=== PATIENT | female | born 1990 | race Caucasian/White ===

== ENCOUNTER 2020-01-29 10:47 | Observation (INO) | END 2020-01-29 12:18 | disposition home or self-care (01) | LOC: 1NENULAB | PROVIDERS: ADMIT Obstetrics & Gynecology; ATTEND Obstetrics & Gynecology ==

== ENCOUNTER 2020-08-15 22:05 | Inpatient (IN) ==
[2020-08-15] MEDS ORDERED: Ringers Solution, Lactated 1,000 ML ONE (22:20)
[2020-08-15] MEDS ORDERED: Naloxone 0.4 MG/ML INJ IVP PRN (22:24)
[2020-08-15] MEDS ORDERED: Metoclopramide 10 MG/2 ML VIAL IVP PRN (22:24)
[2020-08-15] MEDS ORDERED: Famotidine 20 MG/2 ML VIAL IVP PRN (22:24)
[2020-08-15] MEDS ORDERED: Azithromycin 500 MG in 0.9 % Sodium Chloride 250 ML IVPB ONE (22:24)
[2020-08-15] MEDS ORDERED: *HR* FentaNYL (PF) 100 MCG/2 ML VIAL IVP PRN (22:24)
[2020-08-15] MEDS ORDERED: Ringers Solution, Lactated 1,000 ML IVC SCH (22:30)
[2020-08-15 22:40] LABS: Basophils % 0.3 %; Eosinophils % 0.4 %; Hematocrit 31.1 % (35.3-44.9); Hemoglobin 10.2 g/dL (11.5-15.4); Immature Granulocytes % 0.8 % (0-4); Lymphocytes # 2.2 K/mcL (0.6-4.6); Lymphocytes % 20.9 %; Mean Corpuscular HGB Conc 32.8 g/dL (31.6-35.5); Mean Corpuscular Hemoglobin 28.8 pg (28.0-33.3); Mean Corpuscular Volume 87.9 fL (83.0-100.0); Mean Platelet Volume 11.8 fL (9.4-12.4); Monocytes # 0.6 K/mcL (0.0-1.3); Neutrophils # 7.7 K/mcL (1.6-8.9); Platelet Count 238 K/mcL (140-400); Red Blood Count 3.54 M/mcL (3.82-4.97); Red Cell Distribution Width 14.3 % (11.5-14.5); Segmented Neutrophils % 71.6 %; White Blood Count 10.7 K/mcL (4.3-11.1)
[2020-08-15 22:52] LABS: Amphetamine Screen,Urine Negative ng/mL (Cutoff=1000); Barbiturate Screen,Urine Negative ng/mL (Cutoff=200); Benzodiazepines Screen,Urine Negative ng/mL (Cutoff=200); Cannabinoid Screen,Urine Negative ng/mL (Cutoff = 50); Cocaine Screen,Urine Negative ng/mL (Cutoff= 300); Opiate Screen,Urine Negative ng/mL (Cutoff=300); Phencyclidine Screen,Urine Negative ng/mL (Cutoff=25)
[2020-08-16] MEDS ORDERED: *HR* FentaNYL (PF) 100 MCG/2 ML VIAL ONE (01:29)
[2020-08-16] MEDS ORDERED: Ropivacaine/PF 0.2% 20 ML VIAL ONE (01:29)
[2020-08-16] MEDS ORDERED: Epidural Premix (fent/bupiv) 110 ML EP ONE (01:30)
[2020-08-16] MEDS ORDERED: Oxytocin 20 units/ LR 1000 mL 20 UNIT/1,000 ML BAG IVC ONE (01:32)
[2020-08-16] MEDS ORDERED: Oxytocin 20 units/ LR 1000 mL 20 UNIT/1,000 ML BAG IVC SCH (08:31)
[2020-08-16] MEDS ORDERED: Measles/Mumps/Rubella Vacc 0.5 ML VIAL SQ PRN (08:31)
[2020-08-16] MEDS ORDERED: Acetaminophen 325 MG TABLET PO PRN (08:31)
[2020-08-16] MEDS: Ibuprofen 600 MG TABLET PO PRN ×3 (10:17→23:37)
[2020-08-16] MEDS: Prenatal Vit/FA 1 EACH TABLET PO SCH (16:28)
[2020-08-16] MEDS ORDERED: Lanolin 7 G OINT...G. TP PRN (20:13)
[2020-08-17 00:51] VITALS: BP 117/69
[2020-08-17 05:22] LABS: Basophils # 0.1 K/mcL (0.0-0.2); Basophils % 0.4 %; Eosinophils # 0.1 K/mcL (0.0-0.6); Hematocrit 26.9 % (35.3-44.9); Immature Granulocytes % 1.9 % (0-4); Lymphocytes # 3.1 K/mcL (0.6-4.6); Lymphocytes % 24.4 %; Mean Corpuscular HGB Conc 31.2 g/dL (31.6-35.5); Mean Corpuscular Hemoglobin 28.4 pg (28.0-33.3); Mean Corpuscular Volume 90.9 fL (83.0-100.0); Mean Platelet Volume 11.1 fL (9.4-12.4); Monocytes # 0.8 K/mcL (0.0-1.3); Monocytes % 6.2 %; Neutrophils # 8.4 K/mcL (1.6-8.9); Platelet Count 177 K/mcL (140-400); Red Blood Count 2.96 M/mcL (3.82-4.97); Red Cell Distribution Width 14.7 % (11.5-14.5); Segmented Neutrophils % 66.1 %; White Blood Count 12.7 K/mcL (4.3-11.1)
[2020-08-17 05:23] LABS: Hemoglobin 8.4 g/dL (11.5-15.4)
[2020-08-17] MEDS: Ibuprofen 600 MG TABLET PO PRN (08:44)
[2020-08-17] MEDS: Prenatal Vit/FA 1 EACH TABLET PO SCH (08:45)
== END 2020-08-17 11:45 | disposition home or self-care (01) | DRG 807 ==
LOC: 1NENULAB 22:05 → 1NENUOBS 08-16 08:23
PROVIDERS: ADMIT Obstetrics & Gynecology; ATTEND Obstetrics & Gynecology